=== PATIENT | male | born 1970 | race American Indian/Alaskan Native ===

== ENCOUNTER 2024-08-23 05:35 | Day surgery (SDC) | payer OTHER, BC, SELFPAY ==
[2024-08-20 10:42] VITALS: BMI 32.1
[2024-08-20 10:50] VITALS: BMI 32.1
[2024-08-23] VITALS (8 sets, daily range): BP systolic 108–127; BP diastolic 63–74; PULSE 61–85; RESP 12–19; TEMP 36.1–36.5; O2SAT 95–100; BMI 31.0
--- NOTE | 2024-08-23 09:05 | PD.SUROPNT ---
Date of Procedure 08/23/24 Pre Op Diagnosis Profound sensorineural hearing loss left ear Post Op Diagnosis Profound sensorineural hearing loss left ear Procedure Insertion of left Sentio implant Findings Scarring from previous postauricular surgery Procedure Description Indications: This is a 53-year-old male with single-sided deafness on the left ear. He has had 2 previous Ponto implants were the abutment has extruded. He wished to go ahead with the send DO implant and with the anticipation that it would work better for him. Patient was marked and shaved in the preoperative setting and transferred to the operative suite where he was anesthetized and intubated. Left postauricular area was sterilely prepped and draped and a timeout was performed. Area was injected with 1% lidocaine with 1 100,000 Diaz epinephrine. Less than 5 cc total were used. Postauricular incision was then made and anterior and posterior flaps elevated. Oozing was controlled with suction cautery. Periosteal elevator was used to create a pocket posteriorly we had to go higher than normal due to the scarring from the previous Ponto surgeries. Once the pocket was created the dummy implant was inserted and found to have an adequate sized pocket. The well was then drilled for the transducer to about 1 mm in depth. Sizing was checked with the template. The dummy implant was then removed and the pocket irrigated with saline. The implant was then brought into the field and secured with the 45 mm band and self-tapping screws. Implant was stable. The incision was closed in a multilayer fashion with 4-0 Vicryl and then Dermabond on the skin. Patient was awakened and taken recovery room in stable condition Anesthesia GETA Implants sentio Pathology / specimen None Estimated Blood Loss 5 Surgeon Moi Rausch DO Surgical Staff Operation Date: 08/23/24 07:30 Case Staff Anesthesiologist: Jasvir Reynolds
--- NOTE | 2024-08-23 09:07 | SUR.PHASEI ---
0907: Pt. arrived with oral airway in place, vitals stable, breathing unlabored, no signs of distress, dressing behind left ear CDI, no active bleed noted, report received from MD Reynolds and Jun RN.
[2024-08-23] MEDS: HYDROmorphone INJ 2 MG/ML VIAL 0.4 MG IV (09:53)
[2024-08-23] MEDS: HYDROcodone/APAP 5/325 TABLET 1 TAB PO (09:59)
--- NOTE | 2024-08-23 10:10 | SUR.PHASEII ---
1010: Pt. AAOx4, vitals stable, breathing unlabored, no complaint of pain or nausea, dressing behind left ear CDI, no active bleed noted, pt. tolerated sips of water, pt. ambulated to wheelchair with steady gait and no assist, no complications. Gave discharge instructions to the pt. and his , both verbalized understanding and had no further questions. Pt. left with all personal belongings.
== END 2024-08-23 10:10 | disposition home or self-care (01) ==
PROVIDERS: PCP Physician Assistant; Referring Provider Otolaryngology; Visit Provider Otolaryngology
PROC: (CPT 69710; principal; 2024-08-23 07:30)
DX: H90.42 Sensorineural hearing loss, unilateral, left ear, with unrestricted hearing on the contralateral side (principal)
CPT/HCPCS: 69714; L8690; A4217; A4649; J0131; J0690; J1100; J2250; J2405; J2704; J3010; J3490; J7030; A9270

== ENCOUNTER → 2025-02-19 | Outpatient (CLI) | payer OTHER, SELFPAY ==
--- NOTE | 2025-02-19 15:17 | XR_ITS ---
Examination: Thoracic spine 3 views Technique: AP, lateral, coned lateral upper dorsal spine 3 views Date and time: February 19, 2025 1618 hrs. Indications: Upper back pain one week. Findings: Adequate alignment thoracic vertebral bodies Mild minimal chronic compression T5 No acute thoracic fracture Mild diffuse thoracic disc narrowing Impression: Mild diffuse thoracic degenerative disc disease
--- NOTE | 2025-02-19 15:17 | XR_ITS ---
Examination: Lumbar spine, 5 views Technique: Lumbar spine AP, lateral, coned lateral lower lumbar spine, bilateral obliques 5 views Exam date and time: February 19, 2025 1601 hrs. Indications: Upper and lower back pain beginning one week ago. Findings: Moderate diffuse facet arthropathy. Adequate alignment lumbar vertebral bodies on the lateral view. Mild to moderate diffuse lumbar disc narrowing. No lumbar fracture. Moderate lumbar spondylosis. No spondylolisthesis. Impression: Mild to moderate diffuse lumbar degenerative disc disease.
== END | disposition home or self-care (01) ==
PROVIDERS: PCP Physician Assistant; Referring Provider Nurse Practitioner Family; Visit Provider Nurse Practitioner Family
DX: M51.360 Other intervertebral disc degeneration, lumbar region with discogenic back pain only (principal); M51.34 Other intervertebral disc degeneration, thoracic region
CPT/HCPCS: 72072; 72110